=== PATIENT | female | born 1995 | race Caucasian/White ===

== ENCOUNTER 2017-02-17 07:54 | Emergency (ER) | payer BC ==
[~2017-02-17] VITALS: Ht 165.1 cm; Wt 105.0 kg
[~2017-02-17 07:54] MED LIST: ALTACE5 MG OR; BYETTA10 MCG SC; FLEXERIL PO; FLEXERIL5 M1 PO; JANUMET PO; LEVEMIR FL100 UNIT/M SC; LEVIMER SC; LIPITOR10 MG OR; LOVASTATIN10 M1 PO; NAPROSYN500 MG PO; ONE TOUCH ULTRA 100 SC; ONE TOUCH ULTRA LANC SC; SPRINTEC 2828 DAY PO; TORADOL PO; TRAZODONE50 MG PO; ULTRAM50 M1 PO; ZESTRIL/PRINIV2.5 MG PO; [UNRECOGNIZED DRUG - OTHER] PO; [UNRECOGNIZED DRUG - OTHER] SC
[2017-02-17] MEDS ORDERED: METFORMIN500 MG PO (08:02)
[2017-02-17 09:07] LABS: URINE BILIRUBIN - DIPSTICK NEGATIVE (NEGATIVE); URINE BLOOD DIPSTICK LARGE (NEGATIVE); URINE COLOR YELLOW; URINE GLUCOSE - DIPSTICK >=1000 mg/dL (NEGATIVE); URINE KETONE NEGATIVE (NEGATIVE); URINE NITRITE - DIPSTICK NEGATIVE (Negative); URINE PH 5.5 (4.5-8.0); URINE PROTEIN - DIPSTICK NEGATIVE (NEG-TRACE); URINE SPECIFIC GRAVITY 1.015; URINE UROBILINOGEN - DIPSTICK 0.2 E.U./dL (0.2)
[2017-02-17 09:11] LABS: URINE CLARITY CLOUDY
[2017-02-17 09:12] LABS: URINE LEUK ESTERASE SMALL (NEGATIVE)
[2017-02-17 09:14] LABS: URINE BACTERIA MODERATE hpf; URINE EPITHELIAL CELLS MODERATE EPI/hpf (0-FEW); URINE RBC 50-100 RBC/hpf (0-5)
[2017-02-17] MEDS ORDERED: CIPROFLOXACN500 MG PO (10:30)
[2017-02-17] MEDS ORDERED: NAPROSYN500 MG PO (10:30)
[2017-02-17 10:52] VITALS: BP 133/94
== END 2017-02-17 10:52 | disposition home or self-care (01) | DRG 563 ==
LOC: ED 07:54
PROVIDERS: Emergency Medicine
DX: S39.012A Strain of muscle, fascia and tendon of lower back, initial encounter (principal); I10 Essential (primary) hypertension; N39.0 Urinary tract infection, site not specified; E11.9 Type 2 diabetes mellitus without complications; F17.210 Nicotine dependence, cigarettes, uncomplicated; X58.XXXA Exposure to other specified factors, initial encounter; Z79.4 Long term (current) use of insulin

== ENCOUNTER 2017-05-17 01:37 | Emergency (ER) | payer BC ==
[~2017-05-17] VITALS: Ht 165.1 cm; Wt 104.0 kg
[~2017-05-17 01:37] MED LIST changes: +CIPROFLOXACN500 MG PO; +METFORMIN500 MG PO
[2017-05-17] MEDS ORDERED: AMOXICILLIN500 MG PO (02:47)
[2017-05-17 03:09] VITALS: BP 126/72
== END 2017-05-17 03:09 | disposition home or self-care (01) | DRG 153 ==
LOC: ED 01:37
DX: J02.0 Streptococcal pharyngitis (principal); E11.9 Type 2 diabetes mellitus without complications

== ENCOUNTER 2018-12-20 19:11 | Emergency (ER) | payer BC ==
[~2018-12-20] VITALS: Ht 165.1 cm; Wt 81.0 kg
[~2018-12-20 19:11] MED LIST changes: +AMOXICILLIN500 MG PO
[2018-12-20 20:00] LABS: HEMATOCRIT 39.9 % (37.0-47.0); HEMOGLOBIN 13.6 g/dl (12.0-16.0); IMMATURE GRANULOCYTES 1.3 % (0.0-5.0); MEAN CELL VOLUME 83.3 fL CALC (80.0-100.0); MEAN CORPUSCULAR HGB 28.4 pG CALC (26.0-32.0); MEAN CORPUSCULAR HGB CONC 34.1 g/L CALC (32.0-36.0); NEUT# 6.55 thou/uL (2.00-7.15); RED BLOOD COUNT 4.79 mill/uL (4.20-5.60); RED CELL DISTRI WIDTH 12.5 % (11.5-15.5)
[2018-12-20 20:05] LABS: URINE BILIRUBIN - DIPSTICK NEGATIVE (NEGATIVE); URINE BLOOD DIPSTICK TRACE-INTACT (NEGATIVE); URINE COLOR YELLOW; URINE GLUCOSE - DIPSTICK >=1000 mg/dL (NEGATIVE); URINE KETONE NEGATIVE (NEGATIVE); URINE LEUK ESTERASE NEGATIVE (NEGATIVE); URINE NITRITE - DIPSTICK NEGATIVE (Negative); URINE PH 6.5 (4.5-8.0); URINE PROTEIN - DIPSTICK NEGATIVE (NEG-TRACE); URINE UROBILINOGEN - DIPSTICK 0.2 E.U./dL (0.2)
[2018-12-20 20:12] LABS: BARBITURATES NEGATIVE (NEGATIVE); COCAINE NEGATIVE (NEGATIVE); METHADONE NEGATIVE (NEGATIVE); OXCYCODONE NEGATIVE (NEGATIVE); TETRAHYDROCANNABIONOL NEGATIVE (NEGATIVE); TRICYLIC ANTIDEPRESSANTS NEGATIVE (NEGATIVE)
[2018-12-20 20:24] LABS: ALBUMIN 3.4 g/dL (3.2-5.0); ALKALINE PHOSPHATASE 120 u/l (38-126); ANION GAP 13 (6-22 (CALC)); BILIRUBIN, TOTAL 0.3 mg/dL (0.0-1.4); BUN 7 mg/dL (7-17); BUN/CREATININE RATIO 24 (12-20 (CALC)); CARBON DIOXIDE 24 mmol/l (22-30); CHLORIDE 98 mmol/l (95-108); CREATININE 0.3 mg/dL (0.5-1.0); GFR > 60 ML/MIN (>=60 (CALC)); GFR FOR AFR.AMER. > 60 ML/MIN (>=60 (CALC)); SGOT/AST 11 u/l (14-36); SODIUM 131 mmol/l (137-146); TOTAL PROTEIN 6.6 g/dL (6.3-8.2)
[2018-12-20] MEDS ORDERED: METFORMIN HCL1000 M1 PO (21:00)
[2018-12-20] MEDS ORDERED: LEVEMIR FL100 UNIT/M SC (21:00)
[2018-12-20] MEDS ORDERED: DOXYCYCL HYC100 MG PO (21:00)
[2018-12-20 21:45] VITALS: BP 119/76
== END 2018-12-20 21:50 | disposition home or self-care (01) | DRG 603 ==
LOC: ED 19:11
PROVIDERS: Family Medicine
DX: L03.114 Cellulitis of left upper limb (principal); F15.10 Other stimulant abuse, uncomplicated; E11.65 Type 2 diabetes mellitus with hyperglycemia; T38.3X6A Underdosing of insulin and oral hypoglycemic [antidiabetic] drugs, initial encounter; Z91.128 Patient's intentional underdosing of medication regimen for other reason

== ENCOUNTER 2019-09-07 12:45 | Emergency (ER) | payer BC ==
[~2019-09-07] VITALS: Ht 165.1 cm; Wt 86.0 kg
[~2019-09-07 12:45] MED LIST changes: +DOXYCYCL HYC100 MG PO; +METFORMIN HCL1000 M1 PO
[2019-09-07] MEDS ORDERED: NOVOLIN 70/30 SC (12:52)
[2019-09-07 13:39] LABS: HEMATOCRIT 40.6 % (37.0-47.0); HEMOGLOBIN 14.1 g/dl (12.0-16.0); IMMATURE GRANULOCYTES 1.2 % (0.0-5.0); MEAN CELL VOLUME 82.5 fL CALC (80.0-100.0); MEAN CORPUSCULAR HGB 28.7 pG CALC (26.0-32.0); MEAN CORPUSCULAR HGB CONC 34.7 g/L CALC (32.0-36.0); NEUT# 6.76 thou/uL (2.00-7.15); RED BLOOD COUNT 4.92 mill/uL (4.20-5.60); RED CELL DISTRI WIDTH 12.6 % (11.5-15.5)
[2019-09-07 13:40] LABS: URINE BILIRUBIN - DIPSTICK NEGATIVE (NEGATIVE); URINE BLOOD DIPSTICK MODERATE (NEGATIVE); URINE COLOR YELLOW; URINE GLUCOSE - DIPSTICK >=1000 mg/dL (NEGATIVE); URINE KETONE NEGATIVE (NEGATIVE); URINE LEUK ESTERASE NEGATIVE (NEGATIVE); URINE NITRITE - DIPSTICK NEGATIVE (Negative); URINE PROTEIN - DIPSTICK NEGATIVE (NEG-TRACE); URINE UROBILINOGEN - DIPSTICK 0.2 E.U./dL (0.2)
[2019-09-07 13:46] LABS: URINE EPITHELIAL CELLS FEW EPI/hpf (0-FEW)
[2019-09-07 14:20] LABS: ALKALINE PHOSPHATASE 112 u/l (38-126); AMYLASE 35 u/l (30-110); ANION GAP 17 (6-22 (CALC)); BILIRUBIN, TOTAL 0.4 mg/dL (0.0-1.4); BUN 15 mg/dL (7-17); BUN/CREATININE RATIO 26 (12-20 (CALC)); CARBON DIOXIDE 23 mmol/l (22-30); CHLORIDE 97 mmol/l (95-108); CREATININE 0.6 mg/dL (0.5-1.0); GFR > 60 ML/MIN (>=60 (CALC)); GFR FOR AFR.AMER. > 60 ML/MIN (>=60 (CALC)); LIPASE 109 u/l (23-300); POTASSIUM 4.5 mmol/l (3.5-5.1); SGOT/AST 15 u/l (14-36); SODIUM 132 mmol/l (137-146); TOTAL PROTEIN 7.5 g/dL (6.3-8.2)
[2019-09-07] MEDS ORDERED: ZOFRAN4 MG/TAB PO (17:43)
[2019-09-07 17:52] VITALS: BP 136/97
== END 2019-09-07 17:58 | disposition home or self-care (01) | DRG 392 ==
LOC: ED 12:45
DX: R10.11 Right upper quadrant pain (principal); R11.2 Nausea with vomiting, unspecified; E11.65 Type 2 diabetes mellitus with hyperglycemia

== ENCOUNTER 2021-03-20 06:31 | Emergency (ER) | payer BC ==
[~2021-03-20] VITALS: Ht 165.1 cm; Wt 90.0 kg
[~2021-03-20 06:31] MED LIST changes: +NOVOLIN 70/30 SC; +ZOFRAN4 MG/TAB PO
[2021-03-20 06:38] VITALS: BP 147/95
[2021-03-20] MEDS ORDERED: IBUPROFEN600 MG PO (07:58)
== END 2021-03-20 08:10 | disposition home or self-care (01) | DRG 605 ==
LOC: ED 06:31
DX: S90.01XA Contusion of right ankle, initial encounter (principal); S93.401A Sprain of unspecified ligament of right ankle, initial encounter; S90.31XA Contusion of right foot, initial encounter; E11.9 Type 2 diabetes mellitus without complications; E78.00 Pure hypercholesterolemia, unspecified; F17.200 Nicotine dependence, unspecified, uncomplicated; V86.55XA Driver of 3- or 4- wheeled all-terrain vehicle (ATV) injured in nontraffic accident, initial encounter; Y93.I9 Activity, other involving external motion; Z79.4 Long term (current) use of insulin

== ENCOUNTER 2021-08-08 19:41 | Emergency (ER) | payer OTHER ==
[~2021-08-08] VITALS: Ht 165.1 cm; Wt 97.0 kg
[~2021-08-08 19:41] MED LIST changes: +IBUPROFEN600 MG PO
[2021-08-08] MEDS ORDERED: LANTUS100 UNIT SC (19:45)
[2021-08-08 20:36] LABS: HEMOGLOBIN 13.6 g/dl (12.0-16.0); IMMATURE GRANULOCYTES 1.4 % (0.0-5.0); MEAN CELL VOLUME 82.5 fL CALC (80.0-100.0); MEAN CORPUSCULAR HGB 28.8 pG CALC (26.0-32.0); MEAN CORPUSCULAR HGB CONC 34.9 g/dL CAL (32.0-36.0); NEUT# 5.13 thou/uL (2.00-7.15); RED BLOOD COUNT 4.73 mill/uL (4.20-5.60); RED CELL DISTRI WIDTH 12.3 % (11.5-15.5)
[2021-08-08 21:01] LABS: ALKALINE PHOSPHATASE 117 u/l (38-126); ANION GAP 14 (6-22 (CALC)); BILIRUBIN, TOTAL 0.4 mg/dL (0.0-1.4); BUN 9 mg/dL (7-17); BUN/CREATININE RATIO 20 (12-20 (CALC)); CARBON DIOXIDE 27 mmol/l (22-30); CHLORIDE 96 mmol/l (95-108); CREATININE 0.4 mg/dL (0.5-1.0); GFR > 60 ML/MIN (>=60 (CALC)); GFR FOR AFR.AMER. > 60 ML/MIN (>=60 (CALC)); POTASSIUM 4.2 mmol/l (3.5-5.1); SGOT/AST 15 u/l (14-36); SODIUM 134 mmol/l (137-146); TOTAL PROTEIN 7.4 g/dL (6.3-8.2)
[2021-08-08] MEDS ORDERED: PREDNISONE50 MG PO (21:16)
[2021-08-08 21:40] VITALS: BP 157/89
== END 2021-08-08 21:40 | DRG 607 ==
LOC: ED 19:41
PROVIDERS: Family Medicine
DX: R22.0 Localized swelling, mass and lump, head (principal); T38.3X5A Adverse effect of insulin and oral hypoglycemic [antidiabetic] drugs, initial encounter; E11.9 Type 2 diabetes mellitus without complications; E78.00 Pure hypercholesterolemia, unspecified; F17.200 Nicotine dependence, unspecified, uncomplicated; Z79.4 Long term (current) use of insulin

== ENCOUNTER 2022-12-29 20:19 | Emergency (ER) | payer SELFPAY ==
[~2022-12-29] VITALS: Ht 165.1 cm; Wt 104.0 kg
[~2022-12-29 20:19] MED LIST changes: +LANTUS100 UNIT SC; +PREDNISONE50 MG PO
[2022-12-29 21:21] LABS: BASO% 0.6 % (0-3); EOS% 1.1 % (0-8); HEMATOCRIT 38.1 % (37.0-47.0); HEMOGLOBIN 12.9 g/dl (12.0-16.0); IMMATURE GRANULOCYTES 1.3 % (0.0-5.0); MEAN CELL VOLUME 83.6 fL CALC (80.0-100.0); MEAN CORPUSCULAR HGB 28.3 pG CALC (26.0-32.0); MEAN CORPUSCULAR HGB CONC 33.9 g/dL CAL (32.0-36.0); MONO% 6.2 % (2-13); NEUT# 7.56 thou/uL (2.00-7.15); NEUT% 73.8 % (42-76); RED BLOOD COUNT 4.56 mill/uL (4.20-5.60); RED CELL DISTRI WIDTH 12.4 % (11.5-15.5)
[2022-12-29 21:36] LABS: ALBUMIN 3.8 g/dL (3.2-5.0); ALKALINE PHOSPHATASE 132 u/l (38-126); BUN 13 mg/dL (7-17); BUN/CREATININE RATIO 33 (12-20 (CALC)); CHLORIDE 104 mmol/l (95-108); CREATININE 0.4 mg/dL (0.5-1.0); GFR FOR AFR.AMER. > 60 ML/MIN (>=60 (CALC)); GFR OTHER RACES > 60 ML/MIN (>=60 (CALC)); POTASSIUM 4.2 mmol/l (3.5-5.1); SODIUM 134 mmol/l (137-146)
[2022-12-29 21:38] LABS: ANION GAP 13 (6-22 (CALC)); BILIRUBIN, TOTAL 0.2 mg/dL (0.02-1.3); CARBON DIOXIDE 21 mmol/l (22-30); SGOT/AST 30 u/l (14-36)
[2022-12-29] MEDS ORDERED: METFORMIN500 M2 PO (22:19)
[2022-12-29] MEDS ORDERED: TYLENOL # 31 TA1 PO (23:43)
[2022-12-29] MEDS ORDERED: AMARYL2 MG PO (23:43)
[2022-12-29] MEDS ORDERED: VIBRAMYCIN100 M2 PO (23:43)
[2022-12-29] MEDS ORDERED: METFORMIN HYD1000 MG PO (23:43)
[2022-12-30 00:36] VITALS: BP 147/93
== END 2022-12-30 00:46 | disposition home or self-care (01) | DRG 605 ==
LOC: ED 20:19
PROVIDERS: Family Medicine
PROC: 0HQ8XZZ Repair Buttock Skin, External Approach (ICD-10-PCS; principal; 2022-12-29)
PROC: 0HQGXZZ Repair Left Hand Skin, External Approach (ICD-10-PCS; 2022-12-29)
PROC: 0HQJXZZ Repair Left Upper Leg Skin, External Approach (ICD-10-PCS; 2022-12-29)
DX: S31.825A Open bite of left buttock, initial encounter (principal); S71.112A Laceration without foreign body, left thigh, initial encounter; S61.411A Laceration without foreign body of right hand, initial encounter; W55.31XA Bitten by other hoof stock, initial encounter; Z79.4 Long term (current) use of insulin; E11.65 Type 2 diabetes mellitus with hyperglycemia
CPT/HCPCS: J0690

== ENCOUNTER 2022-12-31 18:53 | Emergency (ER) | payer SELFPAY ==
[~2022-12-31] VITALS: Ht 165.1 cm; Wt 230.0 kg
[~2022-12-31 18:53] MED LIST changes: +AMARYL2 MG PO; +METFORMIN HYD1000 MG PO; +METFORMIN500 M2 PO; +TYLENOL # 31 TA1 PO; +VIBRAMYCIN100 M2 PO
[2022-12-31 20:02] VITALS: BP 135/79
[2023-01-02] MEDS ORDERED: NAPROXEN500 MG PO (19:57)
[2023-01-02] MEDS ORDERED: TYLENOL # 31 TA1 PO (19:59)
== END 2022-12-31 20:08 | disposition home or self-care (01) | DRG 921 ==
LOC: ED 18:53
DX: T81.33XA Disruption of traumatic injury wound repair, initial encounter (principal); Y83.8 Other surgical procedures as the cause of abnormal reaction of the patient, or of later complication, without mention of misadventure at the time of the procedure; S61.452A Open bite of left hand, initial encounter; W55.31XA Bitten by other hoof stock, initial encounter; E11.9 Type 2 diabetes mellitus without complications; E78.00 Pure hypercholesterolemia, unspecified; Z79.84 Long term (current) use of oral hypoglycemic drugs

== ENCOUNTER → 2023-01-02 | Emergency (ER) | payer SELFPAY ==
[~2023-01-02] VITALS: Ht 165.1 cm; Wt 106.0 kg
[2023-01-02] VITALS (9 sets, daily range): BP systolic 116–141; BP diastolic 68–94
[~2023-01-02] MED LIST changes: +NAPROXEN500 MG PO
== END | disposition home or self-care (01) | DRG 951 ==
LOC: ED 16:27
DX: Z29.14 Encounter for prophylactic rabies immune globulin (principal); E11.9 Type 2 diabetes mellitus without complications; Z79.84 Long term (current) use of oral hypoglycemic drugs; S31.139A Puncture wound of abdominal wall without foreign body, unspecified quadrant without penetration into peritoneal cavity, initial encounter; S71.032A Puncture wound without foreign body, left hip, initial encounter; W55.41XA Bitten by pig, initial encounter

== ENCOUNTER 2023-01-05 15:19 | Emergency (ER) | payer SELFPAY ==
[~2023-01-05] VITALS: Ht 165.1 cm; Wt 113.0 kg
[2023-01-05 15:32] VITALS: BP 143/85
[2023-01-05 16:15] VITALS: BP 143/85
== END 2023-01-05 16:30 | disposition left against medical advice (07) | DRG 951 ==
LOC: ED 15:19
DX: Z29.14 Encounter for prophylactic rabies immune globulin (principal); R00.0 Tachycardia, unspecified

== ENCOUNTER 2024-10-14 13:57 | Inpatient (IN) | payer SELFPAY ==
[~2024-10-14] VITALS: Ht 165.1 cm; Wt 104.0 kg
[~2024-10-14 13:57] MED LIST changes: +KEFLEX500 MG PO; +METFORMIN HCL500 M1 PO; +METHOCARBAMOL500 MG PO; +NOVOLOG MIX100 U/ML SC
[2024-10-14 14:10] VITALS: BP 153/104
[2024-10-14] MEDS ORDERED: ISOVUE-300 (Iopamidol) 100 ML SDV IV ONE (14:15)
[2024-10-14] MEDS ORDERED: CEFEPIME HYDROCHLORIDE 1 GM in SODIUM CHLORIDE 0.9% 50 ML IV ONE (14:40)
[2024-10-14] MEDS ORDERED: SODIUM CHLORIDE 0.9% 1,000 ML IV ONE ×2 (14:45→16:05)
[2024-10-14] MEDS ORDERED: VANCOMYCIN HCL 1 GM in SODIUM CHLORIDE 0.9% 500 ML IV ONE (14:45)
[2024-10-14 14:47] LABS: BASO% 0.3 % (0-3); EOS% 1.9 % (0-8); LYMPH% 10.7 % (15-41); MEAN CORPUSCULAR HGB 29.4 pG CALC (26.0-32.0); MEAN CORPUSCULAR HGB CONC 34.2 g/dL CAL (32.0-36.0); MONO% 8.4 % (2-13); NEUT# 9.47 thou/uL (2.00-7.15); NEUT% 77.7 % (42-76); RED BLOOD COUNT 4.08 mill/uL (4.20-5.60); RED CELL DISTRI WIDTH 11.9 % (11.5-15.5)
[2024-10-14 14:51] LABS: HEMATOCRIT 35.1 % (37.0-47.0)
[2024-10-14 15:18] LABS: ALBUMIN 3.8 g/dL (3.2-5.0); BILIRUBIN, TOTAL 0.7 mg/dL (0.02-1.3); CREATININE 0.3 mg/dL (0.5-1.0); POTASSIUM 4.6 mmol/l (3.5-5.1)
[2024-10-14 15:30] VITALS: BP 139/78
[2024-10-14 16:00] VITALS: BP 153/92
[2024-10-14] MEDS ORDERED: INSULIN REGULAR (HUMAN) 100 UNIT/ML INJ IV ONE (16:05)
[2024-10-14] MEDS ORDERED: MAGNESIUM HYDROXIDE 30 ML UDC PO PRN (16:20)
[2024-10-14] MEDS ORDERED: ACETAMINOPHEN 325 MG/TAB PO PRN (16:20)
[2024-10-14] MEDS ORDERED: SODIUM CHLORIDE 0.9% 1,000 ML IV PRN (16:20)
[2024-10-14 16:30] VITALS: BP 149/94
[2024-10-14 17:00] VITALS: BP 152/97
[2024-10-14] MEDS ORDERED: INSULIN LISPRO 100 UNITS/ML ML SC SCH (17:00)
[2024-10-14] MEDS ORDERED: INSULIN GLARGINE 100 UNITS/ML SC SCH (17:00)
[2024-10-14] MEDS ORDERED: metFORMIN HYDROCHLORIDE 500 MG/TAB PO SCH (17:30)
[2024-10-14 19:15] VITALS: BP 151/86
[2024-10-14] MEDS ORDERED: hydrALAZINE HCL 20 MG/ML VIAL(1 ML) IV PRN (20:10)
[2024-10-14] MEDS ORDERED: HYDROcodone 5 MG/Acetaminophen 325 MG/COMBO PO PRN (20:10)
[2024-10-14] MEDS ORDERED: ENOXAPARIN SODIUM 40 MG/0.4 ML SYR SC SCH (21:00)
[2024-10-14] MEDS ORDERED: CEFEPIME HYDROCHLORIDE 2 GM in SODIUM CHLORIDE 0.9% 100 ML IV SCH (21:00)
[2024-10-15] MEDS ORDERED: VANCOMYCIN HCL 1,250 MG in SODIUM CHLORIDE 0.9% 225 ML IV SCH
[2024-10-15 05:36] LABS: BASO% 0.3 % (0-3); EOS% 2.1 % (0-8); HEMATOCRIT 32.5 % (37.0-47.0); HEMOGLOBIN 11.1 g/dl (12.0-16.0); IMMATURE GRANULOCYTES 1.1 % (0.0-5.0); LYMPH% 7.7 % (15-41); MEAN CELL VOLUME 86.4 fL CALC (80.0-100.0); MEAN CORPUSCULAR HGB 29.5 pG CALC (26.0-32.0); MEAN CORPUSCULAR HGB CONC 34.2 g/dL CAL (32.0-36.0); MONO% 7.8 % (2-13); NEUT# 9.58 thou/uL (2.00-7.15); RED BLOOD COUNT 3.76 mill/uL (4.20-5.60); RED CELL DISTRI WIDTH 12.3 % (11.5-15.5)
[2024-10-15 06:01] LABS: BILIRUBIN, TOTAL 0.5 mg/dL (0.02-1.3); CREATININE 0.4 mg/dL (0.5-1.0); MAGNESIUM 1.5 mg/dL (1.6-2.3); POTASSIUM 4.2 mmol/l (3.5-5.1); TOTAL PROTEIN 5.7 g/dL (6.3-8.2)
[2024-10-15 06:05] LABS: ALBUMIN 2.9 g/dL (3.2-5.0)
[2024-10-15 07:36] VITALS: BP 120/76
[2024-10-15 14:43] VITALS: BP 154/94
[2024-10-15 18:28] VITALS: BP 115/60
[2024-10-16 05:00] VITALS: BP 115/73
[2024-10-16 06:20] LABS: ALBUMIN 2.7 g/dL (3.2-5.0); BILIRUBIN, TOTAL 0.4 mg/dL (0.02-1.3); CHOLESTEROL HDL RATIO 4.1 (<4.4 (CALC)); CREATININE 0.3 mg/dL (0.5-1.0); MAGNESIUM 1.6 mg/dL (1.6-2.3); POTASSIUM 3.9 mmol/l (3.5-5.1); TOTAL PROTEIN 5.7 g/dL (6.3-8.2)
[2024-10-16 06:22] LABS: BASO% 0.4 % (0-3); EOS% 2.8 % (0-8); HEMATOCRIT 31.4 % (37.0-47.0); HEMOGLOBIN 10.7 g/dl (12.0-16.0); IMMATURE GRANULOCYTES 1.2 % (0.0-5.0); LYMPH% 14.7 % (15-41); MEAN CELL VOLUME 86.5 fL CALC (80.0-100.0); MEAN CORPUSCULAR HGB 29.5 pG CALC (26.0-32.0); MEAN CORPUSCULAR HGB CONC 34.1 g/dL CAL (32.0-36.0); MONO% 9.2 % (2-13); NEUT# 6.94 thou/uL (2.00-7.15); NEUT% 71.7 % (42-76); RED BLOOD COUNT 3.63 mill/uL (4.20-5.60); RED CELL DISTRI WIDTH 12.2 % (11.5-15.5)
[2024-10-16 07:00] VITALS: BP 128/83
[2024-10-16] MEDS ORDERED: SODIUM CHLORIDE 0.9% IV SCH (09:00)
[2024-10-16] MEDS ORDERED: INSULIN GLARGINE 100 UNITS/ML SC SCH (09:00)
[2024-10-16] MEDS ORDERED: VANCOMYCIN HCL 1,500 MG in SODIUM CHLORIDE 0.9% 470 ML IV SCH (09:00)
[2024-10-16] MEDS ORDERED: VANCOMYCIN HCL IV SCH (09:00)
[2024-10-16 16:00] VITALS: BP 124/65
[2024-10-16 18:54] VITALS: BP 121/71
[2024-10-17 05:08] VITALS: BP 123/78
[2024-10-17 05:51] LABS: BASO% 0.6 % (0-3); EOS% 3.3 % (0-8); HEMATOCRIT 33.3 % (37.0-47.0); HEMOGLOBIN 10.8 g/dl (12.0-16.0); IMMATURE GRANULOCYTES 3.6 % (0.0-5.0); LYMPH% 22.2 % (15-41); MEAN CELL VOLUME 88.6 fL CALC (80.0-100.0); MEAN CORPUSCULAR HGB 28.7 pG CALC (26.0-32.0); MEAN CORPUSCULAR HGB CONC 32.4 g/dL CAL (32.0-36.0); MONO% 9.8 % (2-13); NEUT# 4.7 thou/uL (2.00-7.15); NEUT% 60.5 % (42-76); RED BLOOD COUNT 3.76 mill/uL (4.20-5.60); RED CELL DISTRI WIDTH 12.2 % (11.5-15.5)
[2024-10-17 06:00] LABS: ALBUMIN 2.7 g/dL (3.2-5.0); BILIRUBIN, TOTAL 0.3 mg/dL (0.02-1.3); CREATININE 0.4 mg/dL (0.5-1.0); MAGNESIUM 1.6 mg/dL (1.6-2.3); POTASSIUM 3.8 mmol/l (3.5-5.1); TOTAL PROTEIN 5.6 g/dL (6.3-8.2)
[2024-10-17 07:25] VITALS: BP 127/79
[2024-10-17] MEDS ORDERED: INSULIN GLARGINE 100 UNITS/ML SC SCH (09:00)
[2024-10-17] MEDS ORDERED: VIBRAMYCIN100 M2 PO (12:49)
== END 2024-10-17 14:13 | disposition home or self-care (01) | DRG 603 ==
LOC: ED 13:57 → ED-I 16:00 → ED 16:23 → MS2 16:24
PROVIDERS: Nurse Practitioner; Nurse Practitioner Family; ADMIT Internal Medicine; ATTEND Internal Medicine
PROC: 0H90XZZ Drainage of Scalp Skin, External Approach (ICD-10-PCS; principal; 2024-10-15)
DX: L02.811 Cutaneous abscess of head [any part, except face] (principal); L03.811 Cellulitis of head [any part, except face]; E11.65 Type 2 diabetes mellitus with hyperglycemia; Z79.84 Long term (current) use of oral hypoglycemic drugs; B95.62 Methicillin resistant Staphylococcus aureus infection as the cause of diseases classified elsewhere
CPT/HCPCS: J0692; J1650; J1815; J3370; Q9967